=== PATIENT | male | born 1970 | race Caucasian/White ===

== ENCOUNTER 2025-01-15 10:38 | Outpatient (CLI) | payer BC | END 2025-01-15 23:59 | disposition home or self-care (01) | LOC: RAD 10:38 | PROVIDERS: ATTEND Physician Assistant | DX: N20.0 Calculus of kidney (principal); R10.11 Right upper quadrant pain; R16.0 Hepatomegaly, not elsewhere classified | CPT/HCPCS: 76700 ==